=== PATIENT | male | born 1975 | race Caucasian/White ===

== ENCOUNTER 2020-03-15 00:49 | Outpatient (CLI) | payer OTHER, SELFPAY ==
[2020-03-15 18:31] LABS: SARS-CoV-2 RNA PCR Negative
== END 2020-03-15 00:50 | disposition home or self-care (01) ==
LOC: ANHCOVIDDT 00:50
PROVIDERS: PCP Family Medicine; Visit Provider Internal Medicine Gastroenterology
DX: Z01.818 Encounter for other preprocedural examination (principal); Z11.59 Encounter for screening for other viral diseases
CPT/HCPCS: 87635; C9803; U0003

== ENCOUNTER 2020-03-18 01:59 | Day surgery (SDC) | payer OTHER, SELFPAY ==
[2020-03-14 10:20] VITALS: BMI 27.3
--- NOTE | 2020-03-18 07:47 | P.PNAN_ITS ---
Anes - Initial Pre Proc Eval Procedure: Operation Date: 03/18/20 12:45 Proposed Procedures p Colonoscopy - Sedrick Kumari MD Date/Time: 03/18/20 07:47 Surgeon: Sedrick Kumari MD Pre Op Diagnosis: diarrhea Patient Data Age: 44 Gender: M Height: 1.8 m Weight: 89 kg Allergies Allergy/AdvReac Type Severity Reaction Status Date / Time No Known Allergies Allergy Unverified 03/18/20 11:51 Home Medications Medication Instructions Recorded Confirmed Type peg 3350-electrolytes 236 240 ml PO Q10M #4000 ml 03/13/20 Rx gram-22.74 gram-6.74 gram-5.86 gram solution cetirizine [Zyrtec] 10 mg PO DAILY 03/14/20 03/18/20 History eluxadoline [Viberzi] 75 mg PO DAILY 03/14/20 03/18/20 History escitalopram oxalate 10 mg PO DAILY 03/14/20 03/18/20 History Patient hx anesthesia problems: none Family hx anesthesia problems: none [facility] Past Medical History Medical History (Updated 03/18/20 @ 07:46 by Idris Castrejon DO) Anxiety Depression Anes - Eval Final PreProcedure Day of Procedure 03/18/20 07:47 Patient weight: overweight Heart: regular rate and rhythm Lungs: clear to auscultation and normal air movement Airway: Mallampati scale class 1 Neurological: alert and oriented Last oral intake: >/= 8 hours ASA classification: II Emergent: no Anesthetic plan: proceed Anesthesia type and monitoring: general GIVS and standard monitoring Informed Consent: The patient's anesthetic plan and its attendant risks and benefits were discussed with the patient/family/POA. Questions were solicited and answers provided to the satisfaction of the patient/family/POA.
[2020-03-18 11:54] VITALS: BP 121/90; PULSE 67; RESP 16; TEMP 36.3; O2SAT 98; BMI 27.3
[2020-03-18] MEDS: LACTATED RINGERS 1,000 ML 150 ML IV CONT (12:01)
[2020-03-18 12:43] VITALS: BP 120/84; PULSE 50; RESP 18; O2SAT 100
--- NOTE | 2020-03-18 12:57 | WPDHPUPDATE1 ---
History and Physical Update Update Date/Time: 03/18/20 12:57 History and Physical has been reviewed, including an updated exam of the patient. There are NO changes in the patient's condition. Risks, benefits, and alternatives have been discussed and questions answered. Patient agrees to proceed with procedure.
[2020-03-18 13:23] VITALS: BP 112/83; PULSE 70; RESP 16; O2SAT 98
[2020-03-18 13:33] VITALS: BP 112/83; PULSE 66; RESP 18; O2SAT 96
== END 2020-03-18 13:55 | disposition home or self-care (01) ==
PROVIDERS: PCP Family Medicine; Visit Provider Internal Medicine Gastroenterology
PROC: 0DJD8ZZ Inspection of Lower Intestinal Tract, Via Natural or Artificial Opening Endoscopic (ICD-10-PCS; CPT 45378; principal; 2020-03-18 12:45)
DX: K52.9 Noninfective gastroenteritis and colitis, unspecified (principal); K64.8 Other hemorrhoids; F41.8 Other specified anxiety disorders
CPT/HCPCS: 45380; 88305; J2001; J2704; J7120